=== PATIENT | female | born 1950 | race Caucasian/White ===

== ENCOUNTER 2019-03-20 14:10 | Emergency (ER) | payer OTHER ==
[~2019-03-20] VITALS: Ht 152.4 cm; Wt 71.2 kg
[2019-03-20 14:16] VITALS: Ht 152.4 cm; Wt 71.2 kg
[2019-03-20 16:00] VITALS: BP 147/73
== END 2019-03-20 16:00 | disposition home or self-care (01) ==
LOC: ED 14:10
DX: S52.001A Unspecified fracture of upper end of right ulna, initial encounter for closed fracture (principal); S52.181A Other fracture of upper end of right radius, initial encounter for closed fracture; I10 Essential (primary) hypertension; E11.9 Type 2 diabetes mellitus without complications; W18.39XA Other fall on same level, initial encounter; Y93.89 Activity, other specified; Y92.89 Other specified places as the place of occurrence of the external cause; Y99.8 Other external cause status
CPT/HCPCS: Q0092

== ENCOUNTER 2019-03-25 15:42 | Emergency (ER) | payer OTHER ==
[~2019-03-25] VITALS: Ht 154.9 cm; Wt 76.2 kg
[2019-03-25 16:48] VITALS: BP 140/77
== END 2019-03-25 16:56 | disposition home or self-care (01) ==
LOC: ED 15:42
DX: S52.101A Unspecified fracture of upper end of right radius, initial encounter for closed fracture (principal); S52.001A Unspecified fracture of upper end of right ulna, initial encounter for closed fracture; I10 Essential (primary) hypertension; E11.9 Type 2 diabetes mellitus without complications; W18.39XA Other fall on same level, initial encounter; Y93.89 Activity, other specified; Y92.89 Other specified places as the place of occurrence of the external cause; Y99.8 Other external cause status

== ENCOUNTER 2019-11-26 11:26 | Emergency (ER) | payer OTHER ==
[~2019-11-26] VITALS: Ht 154.9 cm; Wt 79.1 kg
[2019-11-26 12:10] VITALS: Ht 154.9 cm; Wt 79.1 kg
[2019-11-26 16:00] VITALS: BP 130/78
== END 2019-11-26 15:40 | disposition home or self-care (01) ==
LOC: ED 11:26
DX: I88.9 Nonspecific lymphadenitis, unspecified (principal); R51 Headache; I10 Essential (primary) hypertension; E11.9 Type 2 diabetes mellitus without complications; R11.2 Nausea with vomiting, unspecified
CPT/HCPCS: J1885; Q0162